=== PATIENT | male | born 1975 | race Caucasian/White ===

== ENCOUNTER 2019-02-16 20:29 | Emergency (ER) | payer MEDICAID ==
[~2019-02-16] VITALS: Ht 152.4 cm; Wt 77.5 kg
[2019-02-16 21:22] VITALS: Ht 152.4 cm; Wt 77.5 kg
[2019-02-17] MEDS ORDERED: morphine 4 MG/ML VIAL IV STA (00:13)
[2019-02-17] MEDS ORDERED: SOD CHLORIDE 0.9% 1,000 ML IV STA (00:13)
[2019-02-17] MEDS ORDERED: ONDANSETRON 4 MG INJ IV STA (00:13)
[2019-02-17] MEDS ORDERED: HYDROmorphONE 0.5 MG/0.5 ML SYG IV STA (02:05)
--- NOTE | 2019-02-17 02:44 | ERD ---
ER Documentation Chief Complaint Chief Complaint LOWER AP X 2 DAYS, INCREASING HPI This is a very pleasant 43-year-old male, was a lower abdominal pain radiating to his left lower quadrant for the past 2 days. Said pain with bowel movements and pain with urination. Denies fevers or chills. Denies any bloody stools. Mild nausea but no vomiting. Patient was recently diagnosed with diverticulitis for about 0.4 months ago. He says this feels very similar to the pain profile. ROS All systems reviewed and are negative except as per history of present illness. Medications Home Meds No Active Prescriptions or Reported Meds Allergies Allergies: Coded Allergies: No Known Allergy (Unverified , 02/17/19) PMhx/Soc History of Surgery: Yes (hernia repair) Anesthesia Reaction: No Hx Miscellaneous Medical Probl: Yes (diverticulitis) Hx Alcohol Use: No Hx Substance Use: No Hx Tobacco Use: No Smoking Status: Never smoker Physical Exam Vitals Vital Signs Date Temp Pulse Resp B/P (MAP) Pulse Ox O2 O2 Flow FiO2 Time Delivery Rate 02/17/19 60 16 112/68 100 Room Air 02:13 (83) 02/16/19 98.7 77 16 144/84 97 21:22 (104) Physical Exam Const: No acute distress Head: Atraumatic Eyes: Normal Conjunctiva ENT: Normal External Ears, Nose and Mouth. Neck: Full range of motion. No meningismus. Resp: Clear to auscultation bilaterally Cardio: Regular rate and rhythm, no murmurs Abd: Soft, non tender, non distended. Normal bowel sounds Skin: No petechiae or rashes Back: No midline or flank tenderness Ext: No cyanosis, or edema Neur: Awake and alert Psych: Normal Mood and Affect Result Diagram: 02/17/19 0018 02/17/19 0018 Results 24 hrs Laboratory Tests Test 02/17/19 00:18 02/17/19 00:33 White Blood Count 11.5 10^3/ul Red Blood Count 4.68 10^6/ul Hemoglobin 13.6 g/dl Hematocrit 40.8 % Mean Corpuscular Volume 87.2 fl Mean Corpuscular Hemoglobin 29.1 pg Mean Corpuscular Hemoglobin Concent 33.3 g/dl Red Cell Distribution Width 13.3 % Platelet Count 306 10^3/UL Mean Platelet Volume 10.0 fl Immature Granulocytes % 0.300 % Neutrophils % 61.2 % Lymphocytes % 28.2 % Monocytes % 7.0 % Eosinophils % 3.0 % Basophils % 0.3 % Nucleated Red Blood Cells % 0.0 /100WBC Immature Granulocytes # 0.040 10^3/ul Neutrophils # 7.0 10^3/ul Lymphocytes # 3.3 10^3/ul Monocytes # 0.8 10^3/ul Eosinophils # 0.4 10^3/ul Basophils # 0.0 10^3/ul Nucleated Red Blood Cells # 0.0 10^3/ul Sodium Level 142 mmol/L Potassium Level 3.7 mmol/L Chloride Level 104 mmol/L Carbon Dioxide Level 24 mmol/L Anion Gap 14 Blood Urea Nitrogen 16 mg/dl Creatinine 0.89 mg/dl Est Glomerular Filtrat Rate mL/min > 60 mL/min Glucose Level 114 mg/dl Calcium Level 9.8 mg/dl Total Bilirubin 0.5 mg/dl Direct Bilirubin 0.00 mg/dl Indirect Bilirubin 0.5 mg/dl Aspartate Amino Transf (AST/SGOT) 22 IU/L Alanine Aminotransferase (ALT/SGPT) 35 IU/L Alkaline Phosphatase 91 IU/L Total Protein 8.1 g/dl Albumin 4.6 g/dl Globulin 3.50 g/dl Albumin/Globulin Ratio 1.31 Lipase 78 U/L Urine Color YELLOW Urine Clarity CLEAR Urine pH 5.0 Urine Specific [place] 1.021 Urine Ketones NEGATIVE mg/dL Urine Nitrite NEGATIVE mg/dL Urine Bilirubin NEGATIVE mg/dL Urine Urobilinogen NEGATIVE mg/dL Urine Leukocyte Esterase NEGATIVE Elizabeth/ul Urine Hemoglobin NEGATIVE mg/dL Urine Glucose NEGATIVE mg/dL Urine Total Protein NEGATIVE mg/dl Current Medications Medications Dose Sig/Gee Start Time Status Last (Trade) Ordered Route PRN Stop Time Admin Dose Reason Admin Sodium 1,000 ml @ Q1H STAT 02/17/19 DC 02/17/19 Chloride 1,000 mls/hr IV 00:13 00:30 02/17/19 01:12 Morphine 4 mg ONCE STAT 02/17/19 DC 02/17/19 Sulfate IV 00:13 00:29 (morphine) 02/17/19 00:14 Ondansetron 4 mg ONCE STAT 02/17/19 DC 02/17/19 HCl (Zofran IV 00:13 00:29 Inj) 02/17/19 00:14 1 mg ONCE STAT 02/17/19 DC 02/17/19 Hydromorphone IV 02:05 02:10 HCl 02/17/19 02:07 (Dilaudid) Procedures/MDM Emergency department course: Patient seen and evaluated by triage nurse. Placed MFM evaluation. Given fluid bolus. Pain medications. Had stat CT scan of the abdomen and pelvis. Diagnostic data: Chest X-ray 1V Interpreted by me: Soft Tissue: No acute a bnormalities Bones: No acute abnormalities Mediastinum/Cardiac Silhouette/Lungs: [No acute abnormalities] CT consistent with sigmoid diverticulitis. Please see radiologist full dictation for full report. Medical decision making: This very pleasant 43-year-old male with acute diverticulitis. At this point I feel he stable for trial of outpatient management. Patient will be discharged home with Augmentin and Flagyl. He has been asked to follow-up in 8 hours for serial abdominal exams to adjacent areas. Patient's gastrointestinal symptoms have stabilized while in the department. No evidence of severe dehydration, sepsis, or surgical abdomen. Extensive discussion with family and patient that occult disease cannot be ruled out. 8 hour recheck for repeat abdominal exam is planned. Departure Diagnosis: Primary Impression: Diverticulitis Condition: Stable ADIA AMBROSIO Feb 17, 2019 02:44
[2019-02-17] MEDS ORDERED: TRAM50TA2 PO (02:51)
[2019-02-17] MEDS ORDERED: AMOX1TAB10 PO (02:51)
[2019-02-17] MEDS ORDERED: METR500T PO (02:51)
[2019-02-17 03:05] VITALS: BP 100/68; PULSE 55; RESP 16
== END 2019-02-17 03:06 | disposition home or self-care (01) ==
LOC: E/R 20:29
DX: K57.32 Diverticulitis of large intestine without perforation or abscess without bleeding (principal)
CPT/HCPCS: 36415; 71045; 74176; 80053; 81003; 83690; 85025; 96374; 96375; J1170; J2270; J2405; J7030; Z7502